=== PATIENT | female | born 1990 | race Caucasian/White ===

== ENCOUNTER 2017-05-30 17:15 | Emergency (ER) | payer BC ==
[2017-05-30 17:31] VITALS: BP 134/72
[2017-05-30] MEDS ORDERED: Ciprofloxacin TAB* 500 MG PO ONE (17:52)
--- NOTE | 2017-05-30 18:02 | UC ---
Complaint Female HPI - HPI Summary HPI Summary: patiant has had increased dysuria and lower abdominal pain for the last 4 days - History Of Current Complaint Chief Complaint: UCGU Stated Complaint: URINARY COMPLAINT Hx Obtained From: Patient Hx Last Menstrual Period: 05/19/17 ?: No Onset/Duration: Sudden Onset, Lasting Days Timing: Lasting Days Severity Initially: Moderate Severity Currently: Moderate Character: Dull, Burning, Cramping Aggravating Factor(s): Urination - Allergies/Home Medications Allergies/Adverse Reactions: Allergies Allergy/AdvReac Type Severity Reaction Status Date / Time Amoxicillin Allergy Unknown Verified 05/30/17 17:30 Reaction Details Penicillins Allergy Body rash Verified 05/30/17 17:30 Home Medications: Home Medications Methenamine-Sodium Salicylate [Azo Urinary Tract Defense 162-162.5 mg] 1 tab PO PRN 05/30/17 [History] PMH/Surg Hx/FS Hx/Imm Hx Previously Healthy: Yes - Surgical History Surgical History: None - Family History Known Family History: Positive: Cardiac Disease, Hypertension - Social History Alcohol Use: Occasionally Substance Use Type: Marijuana Substance Use Comment - Amount & Last Used: daily Smoking Status (MU): Never Smoked Tobacco Review of Systems Constitutional: Negative Skin: Negative Eyes: Negative ENT: Negative Respiratory: Negative Cardiovascular: Negative Gastrointestinal: Negative Genitourinary: Dysuria, Hematuria Motor: Negative Neurovascular: Negative Musculoskeletal: Negative Neurological: Negative Psychological: Negative Is Patient Immunocompromised?: No All Other Systems Reviewed And Are Negative: Yes Physical Exam Triage Information Reviewed: Yes Appearance: Well-Nourished, Ill-Appearing, Pain Distress Vital Signs: Initial Vital Signs Temp 98.2 F 05/30/17 17:20 Pulse 75 05/30/17 17:20 Resp 14 05/30/17 17:20 BP 134/72 05/30/17 17:20 Pulse Ox 100 05/30/17 17:20 Vital Signs Reviewed: Yes Eye Exam: Normal ENT Exam: Normal Dental Exam: Normal Neck exam: Normal Respiratory Exam: Normal Cardiovascular Exam: Normal Cardiovascular: Positive: RRR, No Murmur, Pulses Normal Abdomen Description: Positive: Nontender, No Organomegaly, Soft, CVA Tenderness (R) - neg, CVA Tenderness (L) - neg Bowel Sounds: Positive: Present Musculoskeletal Exam: Normal Musculoskeletal: Positive: Strength Intact, ROM Intact, No Edema Neurological Exam: Normal Neurological: Positive: Alert, Muscle Tone Normal Psychological Exam: Normal Skin Exam: Normal Complaint Female Dx - Course Course Of Treatment: hx obtained, exam performed, meds reviewed, UA obtained, treaetd for a UTI - Differential Dx/Diagnosis Differential Diagnosis/HQI/PQRI: Ureteral Stone, Urinary Tract Infection Provider Diagnoses: UTI Discharge - Discharge Plan Condition: Stable Disposition: HOME Patient Education Materials: Urinary Tract Infection in Women (ED) Referrals: HEIDY Cramer [Primary Care Provider] - Additional Instructions: 1. take the medication as prescribed. 2. increase fluid intake and get rest 3. follow up if symtpoms are not improving
== END 2017-05-30 18:30 | disposition home or self-care (01) ==
LOC: UCCORT 17:15
DX: N39.0 Urinary tract infection, site not specified (principal); R31.9 Hematuria, unspecified; Z32.02 Encounter for pregnancy test, result negative; Z88.0 Allergy status to penicillin; F12.90 Cannabis use, unspecified, uncomplicated
CPT/HCPCS: 81003; 84702; 99202; A9270-GY; G0463